=== PATIENT | female | born 1970 | race Caucasian/White ===

== ENCOUNTER 2017-01-17 10:15 | Emergency (ER) | payer OTHER ==
[~2017-01-17] VITALS: Ht 157.5 cm; Wt 67.1 kg
[2017-01-17 10:26] VITALS: BP 150/91
[2017-01-17] MEDS ORDERED: SERENITY PO (10:42)
[2017-01-17] MEDS ORDERED: HYDR25TA6 PO (10:42)
[2017-01-17 11:46] LABS: HEMATOCRIT 43.9 % (34.6-47.8); HEMOGLOBIN 14.9 g/dL (11.7-16.4); WHITE BLOOD COUNT 7.5 x10^3/uL (3.4-10)
[2017-01-17 11:58] LABS: BLOOD UREA NITROGEN 17 mg/dL (7-18)
[2017-01-17 12:00] LABS: ACETAMINOPHEN < 2 mcg/mL (10-30)
[2017-01-17 12:02] LABS: DAU SCREEN DISCLAIMER
[2017-01-17 12:26] LABS: HCG UR LOT HCG7030192; HCG UR OBC PASS
[2017-01-17] MEDS ORDERED: NAPROXEN 500 MG TABLET PO ONE (13:00)
== END 2017-01-17 15:41 | disposition home or self-care (01) ==
LOC: ED 10:35
DX: R45.851 Suicidal ideations (principal); F32.9 Major depressive disorder, single episode, unspecified
CPT/HCPCS: 36415; 80048; 80307; 80329; 81025; 82040; 85025; 99284; G0479; G0480